=== PATIENT | female | born 1995 | race Caucasian/White ===

== ENCOUNTER → 2017-06-16 10:49 | Outpatient (CLI) | payer MEDICAID, SELFPAY ==
[2017-06-20 09:08] LABS: Testosterone, % Free 1.51 % (0.50-2.80); Testosterone, Free 1.03 ng/dL (0.10-0.85); Testosterone, Total 68 ng/dL (8-48)
[2017-06-20 10:48] LABS: DHEA Sulfate 407.9 ug/dL (110.0-431.7)
== END ==
PROVIDERS: Visit Provider Obstetrics & Gynecology
DX: E28.2 Polycystic ovarian syndrome (principal)
CPT/HCPCS: 36415; 82627; 84402; 84403; 82626

== ENCOUNTER → 2018-02-09 15:23 | Outpatient (CLI) | payer MEDICAID, SELFPAY ==
[2018-02-18 14:18] LABS: HPV Reflexed? NOT INDICATED
== END ==
PROVIDERS: Visit Provider Obstetrics & Gynecology
DX: Z12.4 Encounter for screening for malignant neoplasm of cervix (principal)
CPT/HCPCS: 88175; G0145

== ENCOUNTER 2018-10-29 17:22 | Emergency (ER) | payer MEDICAID, SELFPAY ==
[2018-10-29 17:23] VITALS: BP 149/70; PULSE 89; RESP 16; TEMP 36.7; O2SAT 100; BMI 25.2
--- NOTE | 2018-10-29 17:45 | US_ITS ---
STUDY: FIRST TRIMESTER OBSTETRICAL ULTRASOUND REASON FOR EXAM: Female, 23 years old. Cramping with positive home test. LMP: September 20, 2018 TECHNIQUE: Transabdominal and Transvaginal TECHNICAL QUALITY: Adequate. PRIOR ULTRASOUND: None. FINDINGS: There is visualization of a single gestational sac in a normal intrauterine position. The mean sac diameter (MSD) measures 1.78 cm, indicating an estimated gestational age (EGA) of 6 weeks, 5 days. The gestational sac shape is within normal limits. There is a visualized yolk sac. The yolk sac measures 0.22 cm. The placenta is non-visualized. There is visualization of a live embryo. The crown-rump length (CRL) measures 0.34 cm, indicating an estimated gestational age (EGA) of 6 weeks, 0 days. There is demonstrated cardiac activity with a heart rate of 126 bpm. The estimated gestation age (EGA) by LMP is 5 weeks, 4 days. The estimated date of delivery (YOVANI) by LMP is June 27, 2019. The estimated gestation age (EGA) by US is 6 weeks, 3 days. The estimated date of delivery (YOVANI) by US is June 21, 2019. The uterus measures 10.1 x 5.3 x 5.9 cm. There is no demonstrated uterine fibroid. The cervix is closed. The right ovary measures 2.6 x 1.4 x 2.0 cm. There is no right ovarian cyst. There is no visualized right adnexal mass or complex lesion. The left ovary measures 2.9 x 2.2 x 1.7 cm. There is no left ovarian cyst. There is no visualized left adnexal mass or complex lesion. There is no fluid in the cul de sac. US/Transvaginal w/Preg US IMPRESSION: Single intrauterine with an estimated gestational age by ultrasound of 6 weeks and 3 days and an YOVANI of June 21, 2019. Electronically Signed: Jacquelyn Cobian MD at 19:19 EDT Tel , Service support ,
--- NOTE | 2018-10-29 17:46 | ED.VISSUMM ---
- ER Visit Summary Date of Service: 10/29/18 Chief Complaint: Spotting in History of Present Illness: The patient is a 23 F presenting with spotting in . Patient states that she took a home test that was positive. She started having spotting and pelvic cramping 2 days ago. She is . She believes she may be approximately 5 weeks . She states she has history of irregular periods. Her first ATHLETIC SCOUT appointment is not until the end of this month. Denies other complaints. Physical Examination: Vitals are stable. Patient is afebrile. Alert no acute distress. HEENT exam is unremarkable. Neck is supple. Lungs are clear and equal bilaterally. Heart is regular rate and rhythm. Abdomen is soft nontender nondistended. No guarding or rebound Extremities are unremarkable. Skin is warm and dry. Remainder of exam is unremarkable. Emergency Department Course and Treatment: Blood type A positive. hCG quant [id number]. Pelvic ultrasound shows single intrauterine with an estimated gestational age by ultrasound of 6 weeks and 3 days and an YOVANI of June 21, 2019. On reevaluation, patient is resting comfortably. Advised to follow-up with her ATHLETIC SCOUT. Advised return to ED for worsening complaints. Disposition: Discharge home Impression: Threatened This note was generated with Cerelink dictation software. It may contain incorrect words, spelling, and punctuation that were not noted in review of the chart prior to signing ED Disposition - Plan for ED Patient: Instructions: ED Miscarriage Poss Referrals: Laure Arce MD [STAFF PHYSICIAN] -
[2018-10-29 20:22] LABS: hCG Titer Quant., Serum 28014 mIU/mL (1-3)
--- NOTE | 2018-10-29 20:25 | ED.DEP ---
ED Disposition - Plan for ED Patient: Instructions: ED Miscarriage Poss Referrals: Laure Arce MD [STAFF PHYSICIAN] -
[2018-10-29 20:37] VITALS: BP 132/83; PULSE 85; RESP 16; O2SAT 98
--- NOTE | 2018-10-29 20:39 | ED.RN ---
REVIEWED D/C INSTRUCTIONS, FOLLOW UP CARE, AND S/S THAT WOULD WARRANT A RETURN TO THE ED WITH PT. PT VERBALIZED AN UNDERSTANDING AND DENIES FURTHER QUESTIONS FOR THIS RN. PT SKIN P/W/D, RESP EVEN AND UNLABORED, PT A&O X 3, NO DISTRESS NOTED. PT AMBULATED OUT OF ED, GAIT STEADY.
== END 2018-10-29 20:42 | disposition home or self-care (01) ==
PROVIDERS: Emergency Provider Emergency Medicine; Family Provider Internal Medicine; PCP Internal Medicine
DX: O20.0 Threatened abortion (principal); Z3A.01 Less than 8 weeks gestation of pregnancy
CPT/HCPCS: 76817; 84702; 86900; 86901; 99284; A4216

== ENCOUNTER → 2018-11-13 10:32 | Outpatient (CLI) | payer MEDICAID, SELFPAY ==
[2018-10-29 17:23] VITALS: BMI 25.2
== END ==
PROVIDERS: Family Provider Internal Medicine; PCP Internal Medicine; Referring Provider Advanced Practice Midwife; Visit Provider Advanced Practice Midwife
DX: Z13.228 Encounter for screening for other metabolic disorders (principal); Z34.81 Encounter for supervision of other normal pregnancy, first trimester
CPT/HCPCS: 36415

== ENCOUNTER 2018-12-31 12:30 | Outpatient (RCR) | payer MEDICAID, SELFPAY ==
[2018-12-11 13:59] VITALS: BMI 25.2
== END 2019-01-16 23:59 ==
LOC: DC 12:30
PROVIDERS: Family Provider Internal Medicine; PCP Internal Medicine; Visit Provider Obstetrics & Gynecology
DX: O24.410 Gestational diabetes mellitus in pregnancy, diet controlled (principal)
CPT/HCPCS: G0108

== ENCOUNTER 2019-06-08 11:40 | Inpatient (IN) | payer MEDICAID, SELFPAY ==
[2018-12-11 13:59] VITALS: BMI 25.2
[2019-06-08] MEDS: Lactated Ringers 1,000 ML 50 ML IV (12:15)
[2019-06-08 12:19] VITALS: BMI 37.0
[2019-06-08] MEDS: Oxytocin 30 units/NS 500 ml 30 UNITS/500 ML IV.SOLN IV (12:44)
[2019-06-08 12:46] LABS: Absolute Lymphocyte Count 1.73 X10^3/uL (0.83-4.51); Absolute Neutrophil Count 6.9 X10^3/uL (2.0-7.7); Basophil# 0.01 X10^3/uL; Basophil% 0.1 % (0-1); Eosinophil# 0.03 X10^3/uL; Eosinophils% 0.3 % (0-5); Hematocrit 37.3 % (37-47); Hemoglobin 12.9 g/dL (12.0-15.0); Lymphocyte # 1.73 X10^3/ul (4.0); Lymphocyte % 18.6 % (19-41); Mean Corp Hgb Conc 34.6 g/dL (32-36); Mean Corpuscular Hgb 29.6 pg (27.0-32.0); Mean Corpuscular Volume 85.6 fL (81-99); Mean Platelet Vol. 11.1 fl (6.2-12.0); Monocyte# 0.62 X10^3/uL; Monocyte% 6.7 % (0-10); NRBC Flagged by Analyzer 0 % (0-5); Neutrophil # 6.86 X10^3/uL (2.7-7.7); Neutrophil % 73.9 % (47-70); Platelet Count 212 K/mm3 (150-450); RBC Distribution Width CV 13.1 % (11.6-14.6); RBC Distribution Width SD 40.6 fl (35.1-43.9); Red Blood Count 4.36 M/mm3 (4.2-5.4); White Blood Count 9.3 K/mm3 (4.4-11.0)
[2019-06-08] MEDS: fentaNYL-bupivacaine (epidural) 100 ML BAG EPIDURAL (13:00)
--- NOTE | 2019-06-08 13:01 | PCM.HP.OB ---
History Date of Admission: 05/12/15 Final YOVANI: 06/23/19 Gestational age: 37 Weeks and 6 Days History of this : This is a 23 year-old, 2 para 1 at 37-6/7 weeks gestation for spontaneous rupture membranes. She denies any vaginal bleeding or leaking of fluid. She is had good movement. has been complicated today by gestational diabetes, diet controlled. Allergies No Known Allergies Allergy (Verified 06/06/17 18:07) Home Medications: Home Medications Pnv No.95/Ferrous Fum/Folic AC [ Caplet] 1 each PO DAILY 10/29/18 Smoking Status: Never smoker Alcohol: None Number of Fetus(es): 1 NST - FHR Rate Baby A Baseline: normal Variability:: Moderate Accelerations:: 15 x 15 Decelerations:: None FHR Category:: Category I Uterine Activity:: Irregular contractions History Past Pregnancies: Past Pregnancies Delivery Date Name GA/ Weeks Outcome Route Wt Sex Labor Length Anesthesia Delivery Location Provider FOB Expected Infant Delivery Method: Spontaneous Vaginal Review of Systems Constitutional: Denies: Chills, Fever Eyes: Denies: Blurred vision Cardiovascular: Denies: Chest Pain Respiratory: Reports: Shortness of Breath - With exertion from . Denies: Cough Genitourinary: Denies: Dysuria Skin: Denies: Rash Neurological: Denies: Balance problems, Blurred vision Physical Exam General: Alert, Cooperative, No apparent distress Cardiovascular: Regular rate Lungs: Clear to auscultation Abdomen: Soft, Non Tender, Non-Distended, Gravid Extremities:: Deep tendon reflexes, Other - 1+ edema Neurological: Clonus. Negative for: Slurred Speech, Unsteady Gait CEILING INSULATION BLOWER: Normal external genitalia Estimated gestational size: Large for gestational age Presentation: Cephalic Cervix Dilation (cm): 3 Station: -2 Effacement (%): 70 Assessment/Plan All Active Problems Pre-employment examination (Acute) Bilirubinemia (Acute) Cholecystitis (Acute) This is a 23 year-old, avid 2 para 1 at T7 and 6/7 weeks gestation with spontaneous rupture membranes. Risk benefits and alternatives to induction with Pitocin and been discussed with patient, her questions were answered to her satisfaction she desires to proceed. May have epidural, nitrous oxide or IV meds as needed for pain control. Estimated weight is approximately 4000 g. Pelvis is clinically adequate to expect vaginal delivery. Her blood sugars in labor due to gestational diabetes class A1.
[2019-06-08] MEDS: Lactated Ringers 500 ML 999 ML IV ×2 (13:15→19:35)
[2019-06-08 13:30] LABS: Bedside Glucose 72 mg/dL (70-110)
[2019-06-08 14:20] LABS: Bedside Glucose 80 mg/dL (70-110)
[2019-06-08 16:21] LABS: Bedside Glucose 99 mg/dL (70-110)
[2019-06-08] MEDS: Lactated Ringers 1,000 ML 200 ML IV (18:21)
[2019-06-08] MEDS: DiphenhydrAMINE 50 MG/ML Syringe 25 MG IV (19:16)
[2019-06-08 19:31] LABS: Bedside Glucose 136 mg/dL (70-110)
[2019-06-08] MEDS: Oxytocin 30 units/NS 500 ml 30 UNITS/500 ML IV.SOLN 334 UNITS IV (19:56)
--- NOTE | 2019-06-08 20:14 | OP.PCM_ITS ---
Vaginal Delivery Maternal Presentation: Medically Indicated Induction Method of Induction: Pitocin Medical Reason for Induction: Premature Rupture of Membranes Amniotic Membrane Rupture Type: Spontaneous at home Amniotic Fluid Description: Clear Final YOVANI: 06/23/19 Final YOVANI Source: US <20 weeks Gestational age: 37 Weeks and 6 Days Date of Procedure: 06/08/19 Pre-Operative Diagnosis: labor Post-Operative Diagnosis: same Surgery/ Procedure Performed: Spontaneous Vaginal Delivery Type of Anesthesia: Epidural - not very effective Description of Procedure: A vigorous male infant was delivered LUIS MANUEL over intact perineum. Patient was in hands and knees as the head was and she pushed, but did not deliver the head so she was turned to the side. She then delivered the head and it restituted and the shoulder did not come easily so the patient was immediately flipped to her back and brought to the end of the bed. Her legs were placed in modified Gloria position. She then pushed again and I reached into push the anterior shoulder forward slightly. Suprapubic pressure was then administered for approximately 10 seconds and the anterior shoulder delivered the posterior shoulder then delivered easily and the remainder the delivered intact with maternal pushing efforts only. The Pitocin infusion was initiated for active management of the third stage. The cord was clamped and cut so the inf ant could be transferred to the warmer because of the shoulder dystocia. The infant was attended to by the waiting nursing staff. The placenta was delivered spontaneously and intact. The small left sided cervical laceration was repaired with 2-0 Vicryl suture in a running locked fashion and hemostasis was noted. The remainder the vagina was intact sponge and needle counts were correct. A vaginal sweep was completed by me. Presentation: LUIS MANUEL Placental Delivery Description: Spontaneous Placenta Disposition: [facility] Cord Vessel Description: 3 Vessels Cord Entanglement: None Drain: - - none Estimated Blood Loss: 300 A gender: Male (1 minute): 8 (5 minute): 9 Episiotomy Description: None Laceration: Cervical Extension/lac - 2 cm left cervical lac Medications given after delivery: IV Pitocin Complications: None
[2019-06-08] MEDS: Ketorolac 30 MG/ML Syringe IV (20:36)
[2019-06-08] MEDS: 0.9% Saline Lock 10 ML Syringe IV (20:38)
[2019-06-08 21:20] LABS: Bedside Glucose 123 mg/dL (70-110)
--- NOTE | 2019-06-08 23:15 | NURSING ---
Straight cath done prior to delivery per Dr. Arce report. Will attempt to urinate when ambulating.
[2019-06-08 23:36] VITALS: PULSE 98; RESP 18; TEMP 36.8; O2SAT 97
--- NOTE | 2019-06-08 23:36 | NURSING ---
Report given to Mary ORO.
[2019-06-08] MEDS: Acetaminophen 500 MG Tablet 1000 MG PO (23:50)
[2019-06-09 02:49] VITALS: BP 116/65; PULSE 93; RESP 18; TEMP 37
[2019-06-09] MEDS: Naproxen 250 MG Tablet 500 MG PO ×2 (02:57→12:45)
[2019-06-09] MEDS: Senna/Docusate Sodium 1 Tablet PO (02:58)
[2019-06-09 06:10] LABS: Bedside Glucose 79 mg/dL (70-110)
[2019-06-09 07:30] VITALS: BP 128/76; PULSE 89; RESP 16; TEMP 36.4
[2019-06-09] MEDS: Acetaminophen 500 MG Tablet 1000 MG PO ×2 (07:30→19:33)
--- NOTE | 2019-06-09 12:38 | PCM.PN.OB ---
Subjective: Doing well. Pain controlled. Lochia normal. Ambulating, eating and voiding without difficulty. Denies lightheadedness, dizziness, chest pain, shortness of breath, leg pain. She is bottlefeeding. - Physical Exam Vitals/I&O's: Vital Signs Temp Pulse Resp BP Pulse Ox 97.5 F L 89 16 128/76 H 97 06/09/19 07:30 06/09/19 07:30 06/09/19 07:30 06/09/19 07:30 06/08/19 23:36 Oxygen Delivery Method Room Air Weight: 199 lb Body Mass Index (BMI) 37.0 Intake and Output for Last 24 Hours 06/07/19 06/08/19 06/09/19 23:59 23:59 23:59 Intake Total 2453.17 / 2453.17 Output Total 1000 / 1000 Balance 2453.17 / 1853.17 -1000 / -1000 General: Alert, No apparent distress HEENT: Atraumatic Abdomen: Soft, Non Tender, - - FF@u-1 Extremities: No edema, No Calf Tenderness Skin: No rashes Neurological: Neuro grossly intact Psych/Mental Status: Normal Affect, Appropriate Laboratory Results 06/08/19 12:15: WBC 9.3, RBC 4.36, Hgb 12.9, Hct 37.3, MCV 85.6, MCH 29.6, MCHC 34.6, RDW Std Deviation 40.6, RDW Coeff of Ruddy 13.1, Plt Count 212, MPV 11.1, Immature Gran % (Auto) 0.400, Neut % (Auto) 73.9 H, Lymph % (Auto) 18.6 L, Carbon % (Auto) 6.7, Eos % (Auto) 0.3, Baso % (Auto) 0.1, Absolute Neuts (auto) 6.9, Absolute Lymphs (auto) 1.73, Nucleated RBC % 0 06/08/19 12:15: Blood Type A POSITIVE, Antibody Screen NEGATIVE 06/08/19 13:02: POC Glucose 72 06/08/19 14:13: POC Glucose 80 06/08/19 16:12: POC Glucose 99 06/08/19 19:25: POC Glucose 136 H 06/08/19 21:10: POC Glucose 123 H 06/09/19 06:03: POC Glucose 79 Current Medications Acetaminophen (Tylenol) 1,000 mg PO Q8H PRN PRN PRN Reason: Pain Score 1-3/10 Last Admin: 06/09/19 07:30 Dose: 1,000 mg Documented by: Bisacodyl (Dulcolax) 10 mg RECTAL UD PRN PRN Reason: If no BM Dibucaine (Dibucaine) 1 applic TOPICAL TID PRN PRN; Protocol PRN Reason: Discomfort Hydrocortisone (Hytone) 1 applic TOPICAL TID PRN PRN; Protocol PRN Reason: Discomfort Methylergonovine Maleate (Methergine) 0.2 mg IM X1 PRN PRN Reason: Excess bleeding/uterine atony Naproxen (Naprosyn) 500 mg PO Q8H PRN PRN PRN Reason: Pain Score 1-3/10 Last Admin: 06/09/19 02:57 Dose: 500 mg Documented by: Ondansetron HCl (Zofran) 4 mg IV Q4H PRN PRN PRN Reason: Nausea Prochlorperazine Edisylate (Compazine Iv) 10 mg IV Q6H PRN PRN PRN Reason: NAUSEA/VOMITING Senna/Docusate Sodium (Senokot-S, Sabrina-Colace) 1 - 2 tablet PO DAILY PRN PRN PRN Reason: Constipation Last Admin: 06/09/19 02:58 Dose: 1 tablet Documented by: Simethicone (Mylicon) 80 mg PO PCHS PRN PRN Reason: Indigestion/Stomach pain Sodium Chloride () 5 - 15 ml IV UD PRN PRN Reason: SALINE FLUSH Last Admin: 06/08/19 20:38 Dose: 10 ml Documented by: Medical Necessity - Tobacco Use Smoking Status: Never smoker Assessment/Plan All Active Problems Pre-employment examination (Acute) Bilirubinemia (Acute) Cholecystitis (Acute) PPD#1 s/p - Doing well - Bottle feeding - Dispo: Routine care
[2019-06-09 12:45] VITALS: BP 123/69; PULSE 73; RESP 16; TEMP 36.8
[2019-06-09 15:44] VITALS: BP 122/79; PULSE 82; RESP 16; TEMP 36.6
[2019-06-09 21:06] VITALS: BP 121/76; PULSE 78; RESP 14; TEMP 36.6
[2019-06-09] MEDS: Ondansetron ODT 4 MG Tablet PO (21:51)
[2019-06-10 01:48] VITALS: BP 117/79; PULSE 80; RESP 14; TEMP 36.3
[2019-06-10] MEDS: Naproxen 250 MG Tablet 500 MG PO ×2 (01:51→09:51)
[2019-06-10 08:33] VITALS: BP 120/71; PULSE 77; RESP 14; TEMP 37.2
[2019-06-10] MEDS: Senna/Docusate Sodium 1 Tablet PO (08:48)
--- NOTE | 2019-06-10 09:35 | DCINST_ITS ---
Discharge Diet: No Restrictions Discharge Activity: Return to Normal Activity, May not drive while taking narcotic pain medications., May Shower May resume sexual activity in: 4-6 weeks Additional Activity Instructions:: Nothing in the vagina for 4-6 weeks. You may return to work/school in 6 weeks. Call your doctor if your incision/area has: Continuous Slow Oozing, Sudden Increased Bleeding, Increased Pain/ Swelling, Increased Redness, Foul Smelling Discharge Additional Instructions: If you experience any of the following, contact your healthcare provider. * Bleeding that soaks a pad every hour for 2 hours * Fever 100.4 or higher * Unrelieved incision or abdominal pain * Swelling, redness, discharge or bleeding from your incision or episiotomy site * Your incision begins to separate * Problems urinating (including inability to urinate or burning while urinating). * Visual changes * Severe headache * Flu-like symptoms * Pain or redness in one of both of your breasts * Pain, warmth, tenderness or swelling in your legs, especially the calf area * Frequent nausea and vomiting * Symptoms of depression or anxiety If you experience any of the following, call 911 or go to the nearest Emergency Room. * Chest pain * Problems breathing * Seizure activity * Partial or complete paralysis of a body part, slurred speech, weakness or drooping of the face, or a sudden inability to walk or hold your balance Allergies/Adverse Reactions: Allergies No Known Allergies Allergy (Verified 06/06/17 18:07) Medications to take at Discharge Pnv No.95/Ferrous Fum/Folic AC [ Caplet] 1 each PO DAILY 10/29/18 Ibuprofen [Motrin] 800 mg PO TID PRN PRN #60 tab 06/10/19 The following prescriptions were given: Ibuprofen [Motrin] 800 mg PO TID PRN PRN #60 tab PRN Reason: Pain Transmission Status: Pending to [facility] Please Follow Up With: Laure Arce MD - [phone] When: Call to make an appointment with your doctor in 6 weeks. If you had elevated Blood Pressure or 4th degree laceration you will need to be seen in 2 weeks. Primary Care Physician: Arielle Solares MD [Primary Care Provider] - Test Results: Test results from this visit will be discussed in further detail at your follow- up appointment, if applicable.
--- NOTE | 2019-06-10 09:35 | PCM.PN.OB ---
Subjective: pain well controlled, average lochia. No C/o - Physical Exam Vitals/I&O's: Vital Signs Temp Pulse Resp BP Pulse Ox 98.9 F 77 14 120/71 97 06/10/19 08:33 06/10/19 08:33 06/10/19 08:33 06/10/19 08:33 06/08/19 23:36 Oxygen Delivery Method Room Air Weight: 90.265 kg Body Mass Index (BMI) 37.0 Intake and Output for Last 24 Hours 06/08/19 06/09/19 06/10/19 23:59 23:59 23:59 Intake Total 2453.17 / 2453.17 Output Total 1000 / 1000 Balance 2453.17 / 1853.17 -1000 / -1000 General: Alert, Cooperative, No apparent distress Current Medications Acetaminophen (Tylenol) 1,000 mg PO Q8H PRN PRN PRN Reason: Pain Score 1-3/10 Last Admin: 06/09/19 19:33 Dose: 1,000 mg Documented by: Bisacodyl (Dulcolax) 10 mg RECTAL UD PRN PRN Reason: If no BM Dibucaine (Dibucaine) 1 applic TOPICAL TID PRN PRN; Protocol PRN Reason: Discomfort Hydrocortisone (Hytone) 1 applic TOPICAL TID PRN PRN; Protocol PRN Reason: Discomfort Methylergonovine Maleate (Methergine) 0.2 mg IM X1 PRN PRN Reason: Excess bleeding/uterine atony Naproxen (Naprosyn) 500 mg PO Q8H PRN PRN PRN Reason: Pain Score 1-3/10 Last Admin: 06/10/19 01:51 Dose: 500 mg Documented by: Ondansetron HCl (Zofran) 4 mg IV Q4H PRN PRN PRN Reason: Nausea Ondansetron HCl (Zofran Odt) 4 mg PO Q8H PRN PRN PRN Reason: NAUSEA/VOMITING Last Admin: 06/09/19 21:51 Dose: 4 mg Documented by: Prochlorperazine Edisylate (Compazine Iv) 10 mg IV Q6H PRN PRN PRN Reason: NAUSEA/VOMITING Senna/Docusate Sodium (Senokot-S, Sabrina-Colace) 1 - 2 tablet PO DAILY PRN PRN PRN Reason: Constipation Last Admin: 06/10/19 08:48 Dose: 2 tablet Documented by: Simethicone (Mylicon) 80 mg PO PCHS PRN PRN Reason: Indigestion/Stomach pain Last Admin: 06/10/19 08:48 Dose: 80 mg Documented by: Sodium Chloride () 5 - 15 ml IV UD PRN PRN Reason: SALINE FLUSH Last Admin: 06/08/19 20:38 Dose: 10 ml Documented by: Medical Necessity - Tobacco Use Smoking Status: Never smoker Assessment/Plan All Active Problems Pre-employment examination (Acute) Bilirubinemia (Acute) Cholecystitis (Acute) PPD#2 doing ewll ready for d/c in [facility] for low blood sugars
--- NOTE | 2019-06-10 13:15 | CASEMGMT ---
Social Work Labor and Delivery Unit Patient Addresss: [facility] [address], [address], [place] [address] Patient phone: [phone] Date of Referral:?06.10.2019 Time of Referral:?033 Date of Intervention:?06.10.2019 Time of Intervention:?1315 ? Referred by:?Dr. Jacky Arce ? Reason for Referral:?Infant admitted to [facility]; father of baby (FOB) not involved.? History obtained from:?Mother of baby (MOB) Pascale Clemons and medical records. ?This card writer hand is familiar with family from [facility] labor and delivery unit, where this card writer hand is also the assigned social welfare clerk. ?[place] [facility] [place] writer hand also provides social work to the [facility] ? Household composition:??MOB and older child have been living together. ?Felipeaaaneudy will live in this home at discharge. Reports home situation is safe and adequate. ? Patient's parent/guardian status:?MOB is age 23, single female. ??The FOB is reported to be an male named Kvng, who is 28. ??MOB reports was a result of a one time encounter. ??MOB reports uncertainty as to the level of involvement that reported FOB will have. ?Plan is to pursue paternity as this is what FOB does want. ?No other children reported for FOB. ?ANA now has two children with different paternity. ??Minor Children: Ranjeet Clemons (born 12.13.2012) and Lexus Clemons (born 06.[birth year].2019). ? Medical History:?ANA is G2, P1 to 2 after delivering Ayer. ? care good, stating at 8 weeks. ?ANA had gestational diabetes. ?Reports her epidural did not work properly at delivery, so ended up having a natural . ?MOB also report shoulder dystocia during delivery with Lexus. ??Lexus, who was born at 37 weeks, weighed 8 pounds 6 ounces. ??Apgars 8 and 9 at 1 and 5 minutes of life. ?Lexus was transferred into the [facility] for care and treatment related to hypglycemia. ? Developmental Concerns:?No identified developmental concerns reported for MOB or baby Lexus. ?PNC record indicates a family history of ANA's first cousin with developmental disability. ?ANA's brother identified as a slow learned as a result of umbilical cord issues at the time of . ? ? Educational Status:?High school for MOB, but no diploma. ?MOB is able to read, write, and understands what is read. ? ? Health Care Coverage:?[employer] ? 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 ?MOB will return to work after maternity leave. ? ? Childcare/Caregiver(s):?MOB and then help from ANA's own mother who will babysit.? ? Transportation:?No issues reported or identified. ? Programs/Agencies Involved:?MOB is active with [facility] for food and medical. ?Active with WIC. ??Declines [facility] or [employer] referrals. ?Denies any history of legal issue or with children services. ? ? Behavioral Health Issues:?MOB report as a teen she had depression and was in counseling and on medicine. ?MOB has been off of all since the age of 16 and denies any reoccurrence as an adult. ???Denies any depression. ?Denies any history of suicidal ideation, intent or attempts. ?Denies any thoughts of harm to others. ??Reports did have some anxiety surfacing during , just about the baby being okay. ??Denies any history of substance use or abuse, including alcohol/tobacco/marijuana/heroin/cocaine/meth/pills. ???Maternal tox screen on 11.13.18 was negative. ? Family Stressors:?? unplanned but accepted and MOB states to be happy to have Amaar. ???FOB involvement is unknown at this time and plans for paternity testing. ? ? Support Systems:?MOB reports to have good support from her mother and stepmother, and that can talk to both about stressors. ?MOB reports employment is also a good place to be and feels supported there. ?Baby admitted to the [facility]. ? Assessment Met with MOB at baby Amaar's bedside in the [facility]. ?Educated to dual role between hospitals and that meeting with MOB for both. ??MOB pleasant, engaging in conversation, and pleasant. ?MOB held appropriate eye contact, mood and affect appropriate. ?MOB held baby during social work visit, was attentive and gentle, appropriate and showing bonging cues. ??MOB reports to have all needed baby supplies, and to have help when goes home. ?MOB reports to feel a connection to baby as well. ??MOB accepting of resources lists for [facility] and packet of information on depression and anxiety. ?MOB listened to education on risk factor and importance of seeking out support. ?MOB able to give appropriate responses to shaken baby prevention and safety sleeping. MOB reports to know how to go about seeking out paternity and child support. ? Plan MOB discharging as a patient today. No other service [facility] perspective. Amaar to discharge home from the SCN to MOB when ready. ?Resources have been provided to MOB. ?? ? Social work remains available for support as needed while the family is on the SCN. ? ? MARILY Dee ?
== END 2019-06-10 12:00 | disposition home or self-care (01) | DRG 542 ==
PROVIDERS: Admitting Provider Obstetrics & Gynecology; PCP Internal Medicine; Visit Provider Obstetrics & Gynecology
DX: O24.420 Gestational diabetes mellitus in childbirth, diet controlled (principal); O66.0 Obstructed labor due to shoulder dystocia; O71.3 Obstetric laceration of cervix; O42.913 Preterm premature rupture of membranes, unspecified as to length of time between rupture and onset of labor, third trimester; O36.63X0 Maternal care for excessive fetal growth, third trimester, not applicable or unspecified; Z3A.37 37 weeks gestation of pregnancy; Z37.0 Single live birth
CPT/HCPCS: 59050; 82962; 85025; 86850; 86900; 86901; 99218; J7120; A4216; G0378

== ENCOUNTER 2019-07-13 11:20 | Day surgery (SDC) | payer MEDICAID, SELFPAY ==
[2019-07-13 11:21] VITALS: BP 155/82; PULSE 87; RESP 16; TEMP 36.6; O2SAT 99; BMI 31.6
--- NOTE | 2019-07-13 12:03 | CT_ITS ---
STUDY: CT ABDOMEN AND PELVIS WITHOUT CONTRAST REASON FOR EXAM: Female, 24 years old. RIGHT SIDED AB PAIN X 3 DAYS RADIATION DOSAGE (If Supplied By Facility): CTDIvol = ( 9.32 ) mGy, DLP = ( 449.21 ) mGycm COMPARISON: Previous CT scan of the abdomen and pelvis obtained on 03/28/2016 TECHNIQUE: A CT scan of the abdomen and pelvis was performed without IV contrast contrast administration. Coronal and sagittal reconstruction images were reviewed. This exam was performed according to our departmental dose-optimization program, which includes automated exposure control, adjustment of the mA and/or kV according to patient size and/or use of iterative reconstruction technique. FINDINGS: The lung bases and the base of the heart are normal. The liver is normal.The spleen is normal.The adrenal glands are normal.The head, body, and tail of the pancreas are normal. The right and left kidneys were examined and appear to be normal. Both ureters appear to be normal, and no obstructive uropathy is identified. The abdominal aortal is normal along its course and distribution. No paraortic lymphadenopathy is seen. No abdominal masses or lesions are seen. The CT scan of the pelvis was then reviewed. The common iliac vessels, external iliac vessels, and common femoral vessels are normal along their course and distribution uterus appears to be enlarged and is anteflexed with small uterine leiomyoma involving the frontal of the uterus.. The appendix is visualized and contains a small amount of gas with a thickened superior wall. The appendix measures 9 mm in thickness which is above normal limits. These findings are suspicious for appendicitis. No pericecal inflammatory reaction is seen. Bone scanning windows of the lumbar spine and pelvis were reviewed in the coronal and sagittal planes and appear to be normal. CT/Abdomen/Pelvis without Cont IMPRESSION: Mild thickening of the appendix is identified which now measures 9 mm in thickness. These findings are suspicious for appendicitis and a chronic indolent appendicitis could give this appearance. Electronically Signed: Delta Scott, at 14:33 EST Tel , Service support ,
--- NOTE | 2019-07-13 12:04 | ED.VIS.GEN ---
History of Present Illness Chief Complaint: Abd Pain Informant: Patient Onset: Days Maximum Severity: Mild Narrative: Complains of right side abdominal pain for the last 2 or 3 days, that is been persistent, nothing makes it better or worse nothing obviously triggered it, she has history of cholecystectomy years ago, she is 5 weeks spontaneous vaginal delivery without complications, normal bowel and urinary habits, she is able to eat no change with food, the persistence of the pain caused her to come to the hospital no nausea vomiting or fever again no urinary or bowel bladder history her lochia from the vaginal delivery is markedly reduced Past Medical History - Allergies and Home Meds Allergies/Adverse Reactions: Allergies No Known Allergies Allergy (Verified 06/06/17 18:07) Primary Care Physician: Arielle Solares MD [Primary Care Provider] - Past Medical History: - Surgical History: no surgical history, cholecystectomy - As above Smoking Status: Never smoker - Family History Maternal Family History: Reports: No pertinent history Review of Systems General: Denies: Chills, Fever, Sweats Eyes: Denies: Visual changes - bilaterally, Diplopia ENT: Denies: Rhinorrhea, Sore throat Cardiovascular: Denies: Chest pain, Palpitations Respiratory: Denies: Dyspnea, Cough, Dyspnea on exertion Gastrointestinal: Reports: Abdominal pain. Denies: Nausea, Vomiting, Diarrhea, Melena, Hematochezia Genitourinary: Denies: Dysuria, Hematuria, Frequency Musculoskeletal: Denies: Back pain, Extremity Pain Skin: Denies: Rash, Wounds Neurological: Denies: Headache, Weakness, Numbness Physical Exam Vital Signs/Narrative: Vital Signs Temp Pulse Resp BP Pulse Ox 07/13/19 11:21 97.9 F 87 16 155/82 H 99 General: Well nourished, Well developed, No Acute Distress Head: Normocephalic, Atraumatic Eyes: Perrl, EOMI ENT: Moist mucous membranes, No rhinorrhea Neck: Supple, Nontender Cardiovascular: Regular rate, Regular rhythm, No murmurs Respiratory: No distress, CTA bilaterally, Chest nontender Abdomen: Soft, Nondistended, Normal bowel sounds, - - Nonspecific discomfort to the right upper abdomen there is no rebound guarding organomegaly is no back pain there is no pain to palpation of the lower abdominal area Back: Nontender, Normal Inspection Extremities: Nontender, No edema Skin: Normal color, No rash Neurological: Alert, Oriented x3, Cranial nerves II-XII grossly intact, Normal Strength, Normal Sensation Psychological: Normal affect, Normal Mood Diagnostic/Tx/Re-eval - Medical Decision Making The differential is rather extensive her vital signs are unremarkable her exam shows nonspecific discomfort history of cholecystectomy recent vaginal delivery given all the above screening labs IV fluids UA CT The patient's ED screening labs are generally unremarkable, the abdominal CT per radiology shows an appendix that appears to be 9 mm suggestive of early appendicitis, given all the above we spoke with Dr. Gee covering [facility] surgery, he indicated that Dr. Nails would be coming by to see the patient for the management options, explained all the above to the patient she understands Disposition pending surgery evaluation Impression final right side abdominal pain possible early appendicitis, 5-week status post spontaneous vaginal delivery ED Disposition - Plan for ED Patient: Diagnosis: Abdominal pain Instructions: ABDOMINAL PAIN, Possible Appendicitis (Female) Referrals: Arielle Solares MD [Primary Care Provider] -
[2019-07-13] MEDS: 0.9% Normal Saline 1,000 ML 1000 ML IV (12:28)
[2019-07-13] MEDS: morphine 8 MG/ML Syringe IV (12:31)
[2019-07-13] MEDS: Ondansetron 4 MG/2 ML Vial IV (12:31)
[2019-07-13 12:33] LABS: Absolute Neutrophil Count 6.6 X10^3/uL (2.0-7.7); Basophil# 0.02 X10^3/uL; Basophil% 0.2 % (0-1); Eosinophils% 1.1 % (0-5); Hematocrit 41.4 % (37-47); Hemoglobin 13.7 g/dL (12.0-15.0); Lymphocyte % 21.6 % (19-41); Mean Corp Hgb Conc 33.1 g/dL (32-36); Mean Corpuscular Hgb 28.7 pg (27.0-32.0); Mean Corpuscular Volume 86.6 fL (81-99); Mean Platelet Vol. 9.7 fl (6.2-12.0); Monocyte# 0.58 X10^3/uL; Monocyte% 6.3 % (0-10); NRBC Flagged by Analyzer 0 % (0-5); Neutrophil # 6.55 X10^3/uL (2.7-7.7); Neutrophil % 70.5 % (47-70); Platelet Count 288 K/mm3 (150-450); RBC Distribution Width CV 12.2 % (11.6-14.6); RBC Distribution Width SD 38.7 fl (35.1-43.9); Red Blood Count 4.78 M/mm3 (4.2-5.4); White Blood Count 9.3 K/mm3 (4.4-11.0)
[2019-07-13 12:34] LABS: Color, Urine Yellow (Yellow); Glucose, Dipstick Normal (Normal); Ketone-Dipstick Negative (Negative); Leukocyte Esterase-Dipstick 100 /ul (Negative); Nitrite-Dipstick Negative (Negative); Occult Blood-Urine Negative /ul (Negative); Protein-Dipstick 15 mg/dl (Negative); Specific Gravity, Urine 1.015 (1.002-1.030); Urine Bilirubin Dipstick Negative (Negative); Urine Clarity Sl. Cloudy (Clear); Urine Urobilinogen 1 mg/dl (Normal); Urine pH 6.5 (5.0 - 8.0)
[2019-07-13 12:44] LABS: Bacteria 2+ /hpf (None Seen); Mucous, Urine RARE /hpf (<or=2+); Red Blood Cells-Urine 0-5 SEEN /hpf (0-5); Squamous Epithelial Cells - UA 5-10 SEEN /hpf (5-10); White Blood Cells 5-10 SEEN /hpf (0-5)
[2019-07-13 12:48] LABS: ALB/GLOB Ratio 0.9 RATIO (0.9-2.4); AST(SGOT) 12 U/L (15-37); Alanine Aminotransfer ALT/SGPT 25 U/L (13-56); Albumin, Serum 3.7 g/dL (3.2-5.0); Alkaline Phosphatase 125 U/L (45-117); Anion Gap 6 (5-15); BUN 13 mg/dL (7-18); BUN/Creat Ratio 17.9 RATIO (10-20); Calcium,Total 9.1 mg/dL (8.5-10.1); Chloride 108 mmol/L (98-107); Creatinine, Serum 0.72 mg/dL (0.55-1.02); EST Glomerular Filtration Rate 104 mL/min (>60); Est Glom Filt Rate - Afr Amer 126 mL/min (>60); Estimated Creatinine Clearance 98.81 ml/min; Globulin 4.1 g/dL (2.2-4.2); Glucose 80 mg/dL (74-106); Lipase 75 U/L (73-393); Potassium 3.5 mmol/L (3.5-5.1); Protein, Total 7.8 g/dL (6.4-8.2); Sodium Level 140 mmol/L (136-145)
[2019-07-13 12:55] LABS: Internal QC Validated? YES +Cl - CLEAR BKGD; Pregnancy, Serum, hCG Quali. NEGATIVE Negative
--- NOTE | 2019-07-13 15:35 | APP_PTH ---
PATIENT: LEV CLAYTON LOC: [facility] [place] U#:[id number] AGE/SX: 24/F ROOM: RE07/13/[address]: Dr. Sharon Nails MD : 1995 BED: DIS: 07/13/2019 SPEC #: [id number] RECD: 07/14/19 12:02 STATUS: ARIANA REIsabelle #: [id number] DANIELA: 07/13/19 15:[address]: Sharon Nails DEPT: SURGICAL PATHOLOGY RECD BY: Huang Garcia ENTERED: 07/14/19 12:11 SP TYPE: APPENDIX OTHR DR: Dr. Arielle Solares MD Tissues: Appendix, NOS Procedures: Surgery Specimen Level III HEADER OPERATION: Laparoscopic appendectomy PRE-OP DIAGNOSIS: Acute appendicitis TISSUE SUBMITTED: Appendix MICROSCOPIC DIAGNOSIS Appendix, appendectomy: Appendix, negative for acute inflammation. See comment. ZHANE:andrew 07/15/19 COMMENT The entire appendix is examined. No evidence of acute inflammation in the lumen or appendicular wall. The appendicular lumen shows focal fibrous luminal obliteration. MICROSCOPIC DESCRIPTION Slides are reviewed. GROSS DESCRIPTION Received is one container labeled with the patient's name and designated appendix. The specimen consists of a C-shaped appendix measuring 5.5 cm in length and up to 0.6 cm in diameter. The attached periappendiceal adipose tissue measures up to 0.7 cm in width. No obvious perforation is identified. The lumen is pinpoint. No fecalith is identified. The entire appendix is submitted in one cassette. / SJ:rg 07/14/19 TC:4 CPT: 27868
--- NOTE | 2019-07-13 15:47 | NURSING ---
DR LEW IN ER
--- NOTE | 2019-07-13 16:14 | PCM.HP.BLA ---
History and Physical Date of Admission: 07/13/19 Chief Complaint: abdominal pain History of Present Illness: 24 y/o otherwise healthy WF presents with right lower quadrant abdominal pain for the past three days. Denies nausea or emesis. Denies constipation or diarrhea. She is recently . Denies fevers Normal WBC, slight left shift of differential also possible UTI - positive LE, 2+ bacti CT scan - The appendix is visualized and contains a small amount of gas with a thickened superior wall. The appendix measures 9 mm in thickness which is above normal limits. These findings are suspicious for appendicitis. Past Medical History: denies major medical illnesses Past Surgical History: cholecystectomy Medications: denies taking chronic medications Allergies: Has no known drug allergies Social history: TOB use denies Review of Systems: General - denies fevers, denies weight loss, denies anorexia Cardiovascular denies chest pain, denies history of heart attack Pulmonary denies shortness of breath, denies coughing up blood, denies TOB use Gastrointestinal as per HPI, denies blood in stools, denies hematemesis Neurological denies seizures, denies history of stroke Genitourinary denies burning with urination, denies blood in urine Hematological denies spontaneous/prolonged bleeding Skin denies open non healing wounds Musculoskeletal denies history of fractures Endocrine denies diabetes Psychological denies hallucinations Physical examination: Vital signs Temp 97.9F HR 87 Bp 155/82 RR 16 General WD/WN WF in no apparent distress, alert and oriented, not septic appearing HEENT Normocephalic. EOM intact with sclera clear and no icterus noted. Wearing glasses. Neck is supple with no jugular venous distention noted. Trachea is midline. Lungs clear to auscultation. normal breath sounds in all lung reed. No rales/rhonchi/wheezing noted. No labored breathing noted, such as retractions. No cough heard. Heart normal S1 and S2 auscultated. No rubs/clicks/murmurs noted. regular Abdomen soft but tender in right lower quadrant. Normal bowel sounds, difficult to determine if any masses or organomegaly due to body habitus by PE Extremities no calf tenderness noted. No pitting edema noted. Genitourinary/Rectal deferred Skin normal skin integrity. Neurological non focal. Psychological normal affect, patient is calm and appropriate Impression: right lower quadrant abdominal pain abnormal CT scan findings of appendix UTI Discussion/Plan: I have discussed the above with the patient. She is here with her mother I have offered the patient the procedure of laparoscopic appendectomy I have explained the procedure to the patient. I have counseled the patient as to the risks of the procedure, including but not limited to: infection, bleeding, injury to any blood vessels/nerves, scar tissue, injury to any intrabdominal organs, injury to kidney/ureters, injury to bowel/bladder, intraabdominal abscess/bleeding, hernias at incisional sites, wound infections, possible open procedure, complications of anesthesia, postoperative pneumonia/cardiac problems/blood clots etc. the patient understands. She wishes to proceed. I have answered all questions to the patient?s satisfaction and the patient has no further questions.
[2019-07-13] MEDS: Morphine 4 MG/ML Syringe IV (16:15)
[2019-07-13 16:18] VITALS: BP 133/95; PULSE 99; RESP 16; TEMP 36.7; O2SAT 100; BMI 31.6
--- NOTE | 2019-07-13 16:29 | ED.RN ---
surgery called for report. due to being ready for pt she did not want skin prep done states she will perform in OR. handoff to OR staff who wheeled pt to PACU and informed we did not have antibiotic ordered or SCD in ER. they were ok with this and will perform needed tasks in pre-op
--- NOTE | 2019-07-13 17:04 | NURSING ---
SURGERY DR LOUANN SAUL
--- NOTE | 2019-07-13 17:40 | DCINST_ITS ---
Discharge Diet: No Restrictions - avoid carbonated beverages for a couple of days as this will make you bloated and this would be uncomfortable after surgery drink plenty of fluids Discharge Activity: Return to Normal Activity, May not drive while taking narcotic pain medications. Lifting Restrictions: no lifting greater than 20 pounds for two weeks Call your doctor if your incision/area has: Continuous Slow Oozing, Foul Smelling Discharge Call your doctor if you observe: Fever of 101 or Higher Additional Dressing/Incision Instructions:: Leave dressings in place. May get wet in shower. Do not soak - no tub baths/swimming Instructions: ABDOMINAL PAIN, Possible Appendicitis (Female) Additional Instructions: Recommend pain medication regimen: take 650 mg acetaminophen (Tylenol) then in 3-4 hours take 600 mg ibuprofen (Motrin, Advil) then in 3-4 hours take 650 mg acetaminophen, then in 3-4 hours take 600 mg ibuprofen, etc - for 2-3 days Take prescription narcotic pain medication for severe pain and at night Medications to take at Discharge NK 07/13/19 Allergies/Adverse Reactions: Allergies No Known Allergies Allergy (Verified 06/06/17 18:07) Primary Care Physician: Arielle Solares MD [Primary Care Provider] - Test Results: Test results from this visit will be discussed in further detail at your follow- up appointment, if applicable. Please Follow Up With: Sharon Nails MD - call When: to be seen in 7-10 days, please call for appointment, thank you
[2019-07-13] MEDS: Bupiv/Epi 0.25% 30 ML Vial (18:09)
--- NOTE | 2019-07-13 18:17 | OP.PCM_ITS ---
Report of Operation Date of Procedure: 07/13/19 Pre-Operative Diagnosis: abnormal appendix by CT scan, right lower quadrant abdominal pain Post-Operative Diagnosis: same Surgery/Procedure Performed:: laparoscopic appendectomy Description of Surgical Findings:: grossly normal appendix Type of Anesthesia:: General Anesthesiologist: Mally Urbina Specimen's removed: appendix Drains: none Estimated Blood Loss (mL): < 10 ml Fluids Replaced: 800 ml RL Description of Procedure: After informed consent was obtained, the patient was brought into the operating room. Appropriate time out protocol was followed. She was then placed in the supine position on the operating table. Flowtron stockings were placed on the patient. The patient was then placed under general anesthesia. The patient?s abdomen was then prepped with a sterile surgical skin preparation and sterile s urgical drapes were placed. The infraumbilical skin fold was grasped with penetrating clamps and the skin and subcutaneous tissues were infiltrated with 0.25% marcaine with epinephrine. A skin incision was then made. A Veress needle was then inserted into the intraabdominal cavity and checked to be in the proper position with a normal saline drop test. A CO2 pneumoperitoneum was then created. Once this was achieved, the Veress needle was removed and a 5 mm trocar was placed in its stead. A 5 mm laparoscope was then inserted into the trocar. Careful examination of the intraabdominal contents was then done. There was no evidence of injury to any internal organs from placement of the Veress needle or the trocar. Under direct visualization, a 12mm suprapubic trocar and a 5mm left lower quadrant trocar was then placed into the intraabdominal cavity. The skin and subcutaneous tissues at these sites were first infiltrated with 0.25% marcaine with epinephrine. Attention was then dire cted to the right lower quadrant. The appendix was visualized. The mesentery of the appendix was taken down by cauterizing the tissue from the free edge to the base of the appendix with the Harmonic scalpel. Once the base of the appendix was freed of surrounding tissues, then the linear gastrointestinal stapling device was brought into the abdominal cavity via the 12mm port and placed across the base of the appendix. The stapling device was fired, thus stapling across the base of the appendix and transecting it simultaneously. The appendix was then placed in an Endobag and this was brought out through the suprapubic trocar. The appendix was then forwarded to Pathology for analysis. The appendiceal stump was carefully examined. There was no evidence of any active bleeding or fecal leakage. The surrounding tissues were also examined and there was no evidence of any active bleeding or fecal/bile leakage. The intraabdominal cavity was examined and there was no evidence of further inflammation or tissue abnormality. There was no evidence of any peritoneal fluid. The CO2 pneumoperitoneum was released and all trocars were removed intact. The suprapubic fascia was reapproximated with a figure-of-8 vicryl suture. All skin incisions were reapproximated with monocryl suture. Cavilon and steristrips were applied to reinforce skin closure and proper sterile dressings were placed. The patient was then extubated and brought to the Recovery Room in stable condition. - Complications none noted - Admit VTE Documentation VTE Present on Admission: Yes VTE Mechan Device Prophylaxis: SCD's
[2019-07-13 18:30] VITALS: BP 133/95; BP 149/81; PULSE 106; PULSE 114; RESP 16; RESP 18; TEMP 36.5; O2SAT 98; O2SAT 99
[2019-07-13] MEDS: Lactated Ringers 1,000 ML 75 ML IV (18:42)
[2019-07-13 18:45] VITALS: BP 133/95; BP 147/87; PULSE 104; RESP 16; O2SAT 97
[2019-07-13 18:54] VITALS: BP 133/95; BP 147/68; PULSE 107; RESP 16; TEMP 36.2; O2SAT 96
[2019-07-13] MEDS: HYDROcodone Bitartrate/Apap 5/325 Tablet PO (19:14)
[2019-07-13 19:18] VITALS: BP 133/95; BP 141/85; RESP 16; TEMP 36.4; O2SAT 98
== END 2019-07-13 19:29 | disposition home or self-care (01) ==
LOC: ED 15:59 → SDC 16:04 → ACINP 16:05
PROVIDERS: Emergency Provider Emergency Medicine; PCP Internal Medicine; Visit Provider Surgery
PROC: 0DTJ4ZZ Resection of Appendix, Percutaneous Endoscopic Approach (ICD-10-PCS; CPT 44970; principal; 2019-07-13 15:15)
DX: R10.31 Right lower quadrant pain (principal); Z90.49 Acquired absence of other specified parts of digestive tract; N39.0 Urinary tract infection, site not specified
CPT/HCPCS: 00840; 44970; 74176; 80053; 81001; 83690; 84703; 85025; 88304; 99282; J7030; J7050; J7120; Q9967; A4216; J2405

== ENCOUNTER 2019-07-22 07:58 | Day surgery (SDC) | payer MEDICAID, SELFPAY ==
--- NOTE | 2019-07-21 09:05 | PCM.HP.BLA ---
History and Physical Date of Admission: 07/22/19 HPI: The patient is a 24 year old female presenting for pre-operative visit. She is scheduled for?bilateral salpintectomy, for?sterilization on?07/23/2019. ??Procedure discussed along with risks, benefits and complications. ?Other alternatives discussed for management. Consent form signed??Yes.? PAST MEDICAL HISTORY PAST MEDICAL HISTORY Diagnosis Date ? Acute appendicitis 07/13/2019 ? Chlamydia 03/2012 ? Depression ? ? FRACTURE 1999 ? RIGHT ARM, TRAMPOLINE ACCIDENT ? Gestational diabetes mellitus, class A1 12/09/2018 ? ? PAST SURGICAL HISTORY PAST SURGICAL HISTORY Procedure Laterality Date ? LAP CHOLECYSTECT/CHOLANGIOGRAPHY ? 05/13/15 ? CBD stones ? LAPAROSCOPY, SURGICAL, APPENDECTOMY ? 07/13/2019 ? ? CURRENT MEDICATIONS Current Outpatient Medications Medication Sig Dispense Refill ? blood sugar diagnostic test strip 1 Strip four times daily. Use as instructed 120 Strip 9 ? Lancets lancets 1 Each four times daily. Use as instructed 120 Each 9 ? Urine Glucose-Ketones Test (KETO-DIASTIX) strp 1 Strip four times daily. 120 Strip 9 ? vit [id number] (PRENATE MINI, FERR ASP GLYCIN,) 18-1-350 mg cap Take 1 capsule by mouth once daily. 30 capsule 11 ? No current facility-administered medications for this visit.? ? ALLERGIES:?Patient has no known allergies. ? PERSONAL HISTORY:? SOCIAL HISTORY Social History ? Tobacco Use ? Smoking status: Never Smoker ? Smokeless tobacco: Never Used Substance Use Topics ? Alcohol use: No ? Drug use: No ? FAMILY HISTORY:? FAMILY HISTORY FAMILY HISTORY Problem Relation Age of Onset ? Diabetes Mother ? ? Stroke Mother ? ? Diabetes Father ? ? Diabetes Brother ? ? Cancer Maternal Grandmother ? ? Hypertension Maternal Grandfather ? ? Cancer Paternal Grandmother ?lung ? Cancer Paternal Grandfather ?prostate ? No Known Problems Daughter ? ? REVIEW OF SYMPTOMS: GENERAL: denies fevers or chills ENDOCRINOLOGY: has not been on steroids Cardiology : denies palpitations or chest pain Respiratory: denies SOB or cough Hematology: denies history of prolonged bleeding or easy bruising or VTE Allergy: Denies history of personal or family history of allergy to anesthesia ? ? PHYSICAL EXAMINATION: ? VITALS:?unknown if currently . ? GENERAL:??The patient is well nourished, well hydrated in no acute distress. ?, The patient is oriented to time, place, and person. NECK:?Supple. No lynphadenopathy, normal thyroid, no thyromegaly. LUNGS:?Clear to auscultation bilaterally. no wheezes, rhonchi or rales HEART:?Regular rate and rhythm, Normal heart sounds and No murmurs or gallops ? IMPRESSION:?sterilization request ? PLAN:???The risks/benefits/alternatives and personal involved for the planned?l/s bilateral salpingectomy?were reviewed with the patient. Her questions were answered to her satisfaction and she desires to proceed. ?Consent was signed. ?I reviewed with her postop instructions and expectations. ? ? I have reviewed and updated past medical and surgical history, medications and allergies? This history and physical was completed in my office on 07/20/2019.
[2019-07-22] VITALS (10 sets, daily range): BP systolic 117–142; BP diastolic 66–84; PULSE 68–95; RESP 15–16; TEMP 36.1–36.7; O2SAT 16–100; BMI 34.4
[2019-07-22 08:31] LABS: Internal QC Validated? YES +Cl - CLEAR BKGD; Pregnancy, Urine Negative Negative
[2019-07-22] MEDS: Acetaminophen 500 MG Tablet 1000 MG PO (08:31)
[2019-07-22] MEDS: Celecoxib 200 MG Capsule 400 MG PO (08:32)
[2019-07-22] MEDS: Lactated Ringers 1,000 ML 100 ML IV (08:39)
--- NOTE | 2019-07-22 09:30 | FALS_PTH ---
PATIENT: LEV CLAYTON LOC: [facility] [place] U#:[id number] AGE/SX: 24/F ROOM: RE07/22/[address]: Dr. Laure Arce MD : 1995 BED: DIS: 07/22/2019 SPEC #: [id number] RECD: 07/22/19 13:14 STATUS: ARIANA ESPEARNZA #: [id number] DANIELA: 07/22/19 09:[address]: Laure Arce DEPT: SURGICAL PATHOLOGY RECD BY: Huang Garcia ENTERED: 07/22/19 13:51 SP TYPE: FALL TUBES OTHR DR: Dr. Arielle Solares MD Tissues: Fallopian tube Procedures: Surgery Specimen Level II HEADER OPERATION: Laparoscopic salpingectomy PRE-OP DIAGNOSIS: Sterilization TISSUE SUBMITTED: Bilateral fallopian tubes MICROSCOPIC DIAGNOSIS Bilateral fallopian tubes, salpingectomy: Bilateral fallopian tubes including fimbrial ends, no pathologic diagnosis. A paratubal cyst. SJ:andrew 07/23/19 MICROSCOPIC DESCRIPTION Slides are reviewed. GROSS DESCRIPTION Received is one container labeled with the patient's name and designated bilateral fallopian tubes. The specimen consists of bilateral fallopian tubes including fimbrial ends measuring 6 cm in length and 0.5 cm in diameter and 7 cm in length and 0.5 cm in diameter. A paratubal cyst is noted in one of the fallopian tubes measuring 1 cm in greatest dimension. The fallopian tubes are not identified as right or left. Sections reveal unremarkable cut surfaces. Solder Making Laborer sections are submitted in two cassettes with each cassette containing one fallopian tube. Cassette 2 also contains the paratubal cyst. / ZHANE:andrew 07/22/19 TC:5 CPT: 05698 x2
[2019-07-22] MEDS: Lactated Ringers 1,000 ML 75 ML IV (10:10)
--- NOTE | 2019-07-22 10:10 | DCINST_ITS ---
Discharge Diet: No Restrictions - Increase fluid intake for the next 48 hours. Discharge Activity: Return to Normal Activity, May Drive - when you are no longer taking pain/narcotic meds., May Shower, May Take a Tub Bath - in 7 days Additional Activity Instructions:: Ambulate often the next week after surgery. Nothing in the vagina for 5 days. Call your doctor if your incision/area has: Continuous Slow Oozing, Sudden Increased Bleeding, Increased Pain/ Swelling, Increased Redness, Foul Smelling Discharge Call your doctor if you observe: Fever of 101 or Higher Cleanse incision/area with: Soap & Water, - - Your incisions have skin glue, it can get wet. Wash with soap and water and leave on for 10-14 days Allergies/Adverse Reactions: Allergies No Known Allergies Allergy (Verified 07/22/19 08:18) Medications to take at Discharge Acetaminophen [Tylenol] 500 - 1,000 mg PO Q6H PRN PRN 07/20/19 Ibuprofen [Motrin] 600 mg PO Q6H PRN #60 tab 07/22/19 Oxycodone [Oxyir] 5 mg PO Q6H PRN PRN 7 Days #10 tablet 07/22/19 The following prescriptions were given: Ibuprofen [Motrin] 600 mg PO Q6H PRN #60 tab PRN Reason: Pain Transmission Status: Pending to [facility] Oxycodone [Oxyir] 5 mg PO Q6H PRN PRN 7 Days #10 tablet PRN Reason: severe pain Transmission Status: Received by [facility] Primary Care Physician: Arielle Solares MD [Primary Care Provider] - Test Results: Test results from this visit will be discussed in further detail at your follow- up appointment, if applicable. Please Follow Up With: Laure Arce MD - [phone] When: 2-4 weeks or as needed
[2019-07-22] MEDS: Bupivacaine Mpf 0.5% 30 ML VIAL (10:30)
--- NOTE | 2019-07-22 10:46 | OP.PCM_ITS ---
Report of Operation Date of Procedure: 07/22/19 Pre-Operative Diagnosis: sterilization request Post-Operative Diagnosis: none Surgery/Procedure Performed:: Laparoscopic bilateral salpingectomy channel marketing specialist: Seth Aguillon Type of Anesthesia:: General Anesthesiologist: Vlad Man Special Medications: none Specimen's removed: bilateral fallopian tubes Drains: none Estimated Blood Loss (mL): 10 Fluids Replaced: 1100 cc Description of Procedure: The patient was taken to the operating room where she was prepped and draped in the dorsolithotomy position. A weighted speculum was placed in the vagina and the anterior lip of the cervix was grasped with a tenaculum. The Emma uterine manipulator was placed and the remainder of the instruments were removed from the vagina. Attention was turned to the abdomen. All port sites were infiltrated with 0.5% Marcaine before skin incisions were made. A 5 mm [intraumbilical] incision was made. The anterior abdominal wall was tented up with 2 towel clamps while a 5 mm blade less trocar and sleeve were [directly inserted]. Intraperitoneal placement was confirmed with the laparoscope. The pneumoperitoneum was created and the underlying abdominal contents were intact. The patient was placed in Trendelenburg. Right and left lower quadrant ports were placed under direct visualization lateral to the inferior epigastric vessels. The bowel was swept away and the above findings were noted. The LigaSure device was used to clamp seal and transect the antimesenteric portions of the right tube to the cornual insertion of the uterus. The tube was amputated from the uterus and the pedicles were all confirmed to be hemostatic. The same procedure was performed on the contralateral side. The specimens were brought out through a 5 mm port. The pedicles were again examined and found to be hemostatic. The lateral ports were removed under direct visualization and no active bleeding was noted. The pneumoperitoneum was released. The skin incisions were closed with Monocryl suture in a subcuticular fashion and skin glue. The vaginal instruments were removed and the vaginal sweep was completed by me. The entire procedure was performed by me with assistance. All sponge and needle counts were correct and the patient was taken to the recovery room in stable condition. Grafts/Implants Used: none - Complications none - Admit VTE Documentation VTE Present on Admission: No VTE Mechan Device Prophylaxis: SCD's VTE Pharm Prophylaxis ordered?: No Reason prophylaxis not ordered:: Treatment Not Indicated
== END 2019-07-22 12:28 | disposition home or self-care (01) ==
LOC: SDC 07:59 → AC 08:01
PROVIDERS: PCP Internal Medicine; Referring Provider Obstetrics & Gynecology; Visit Provider Obstetrics & Gynecology
PROC: (CPT 58661; principal; 2019-07-22 09:15)
DX: Z30.2 Encounter for sterilization (principal); N83.8 Other noninflammatory disorders of ovary, fallopian tube and broad ligament
CPT/HCPCS: 00840; 58661; 81025; 88302; J7120; J2405

== ENCOUNTER 2022-12-08 12:08 | Emergency (ER) | payer MEDICAID, SELFPAY ==
[2022-12-08 12:09] VITALS: BP 146/87; PULSE 103; RESP 18; TEMP 35.7; O2SAT 97; BMI 41.5
--- NOTE | 2022-12-08 12:22 | EX.ED.DYSGE1 ---
HPI <RITA Manning - Last Filed: 12/08/22 13:04> History of Present Illness Chief Complaint: Rash Narrative Narrative: Patient presenting today with a poison flori rash to her arms bilaterally, neck, and face. The rash started on Friday to her arms and she went to urgent care on Friday where she was given a shot of a steroid and topical steroid cream. Yesterday, it spread to her face and seemed to worsen. She reports that it has spread to her right eyelid and she is having a difficult time opening up her eye. She denies any visual changes, blurry vision, or eye pain. She denies a PMH of any chronic health conditions. She denies any fever or chills. PFSH <RITA Manning - Last Filed: 12/08/22 13:04> PFSH Home Medications acetaminophen 500 mg tablet 500 - 1,000 mg PO Q6H PRN PRN Pain Or Fever 07/20/19 [History Last Taken Unknown] ibuprofen 600 mg tablet 600 mg PO Q6H PRN Pain #60 tabs 07/22/19 [Rx Last Taken Unknown] prednisone 20 mg tablet 40 mg (2 x 20 mg) PO DAILY 7 days #14 tabs 12/08/22 [Rx Last Taken Unknown] Allergy/AdvReac Type Severity Reaction Status Date / Time No Known Allergies Allergy Verified 07/22/19 08:18 Social History Smoking Status: Never smoker ROS <RITA Manning - Last Filed: 12/08/22 13:04> ROS ED Constitutional Constitutional ED: Denies chills or fever(s) Eyes Eyes: Denies blurry vision or change in vision Cardiovascular Cardiovascular: Denies chest pain or palpitations Respiratory/Chest Respiratory/Chest: Denies cough or dyspnea Gastrointestinal Gastrointestinal: Denies abdominal pain, nausea or vomiting Musculoskeletal Musculoskeletal: Denies arthralgias or myalgias Integumentary Reports rash; Denies abscess Neurologic Neurologic: Denies weakness Allergic/Immunologic Allergic/Immunologic ED: Denies lip swelling, mouth swelling or tongue swelling EXAM <RITA Manning - Last Filed: 12/08/22 13:04> Physical Exam Const Vital Signs: 12/08/22 12:09 Temperature 96.3 F L Temperature Source Temporal Pulse Rate 103 H Respiratory Rate 18 Blood Pressure 146/87 H Blood Pressure Mean 106 Pulse Ox 97 Oxygen Delivery Method Room Air Positive well nourished, well developed and no apparent distress General Appearance ED: well developed HEENT Reports normocephalic and head/scalp atraumatic Mouth ED: Yes moist mucous membranes normal Eyes PERRL and EOMs intact bilaterally Eyes Narrative: Moderate periorbital edema on the right side. Neck full ROM and supple Chest Wall inspection of chest normal Resp normal respiratory effort and clear to auscultation bilaterally Cardio regular rate and regular rhythm GI soft to palpation, non-tender, non-distended and no masses Back/Spine normal ROM and normal to inspection Extremity normal to inspection and full ROM Neuro oriented x3, CN's II-XII intact bilaterally, moves all extremities, no focal motor deficits and no sensory deficits noted Sensorium / Orientation: awake and alert Psych mental status grossly normal and thought process normal Skin no rashes or lesions noted and no wounds Skin Narrative: Scattered vesicular lesions consistent with poison flori dermatitis to the arms, neck, and face. No evidence of cellulitis or abscess. <Dr. Les Heath MD - Last Filed: 12/08/22 12:43> Physical Exam Const Vital Signs: 12/08/22 12:09 Temperature 96.3 F L Temperature Source Temporal Pulse Rate 103 H Respiratory Rate 18 Blood Pressure 146/87 H Blood Pressure Mean 106 Pulse Ox 97 Oxygen Delivery Method Room Air MDM <RITA Manning - Last Filed: 12/08/22 13:04> [facility] Narrative Medical decision making narrative: Patient presenting due to poison flori dermatitis she has had since Friday. She went to urgent care on Friday was given a shot of steroid and her symptoms began worsening yesterday and this morning. She now has involvement of her face and arms and moderate right periorbital edema. No evidence of abscess or cellulitis. She will be given prednisone here as well as a prescription for prednisone. She will be discharged home in stable condition and and is comfortable with plan. She is to follow-up with PCP return for any worsening of symptoms. I have personally performed a face to face assessment of the patient and have reviewed the JULIO Note. I performed a substantive portion of the visit including all aspects of the following. My dias findings include: History is 27-year-old female with a contact dermatitis she believes is poison flori. Treated with Kenalog shot from an urgent care on Friday no improvement. Exam is [well-appearing 19-year-old female. Vital signs stable afebrile. HEENT exam she has a rash on the right side of her face around her eye and right side of her neck consistent with a contact dermatitis. There is no secondary cellulitis. Lungs are clear. Heart regular rhythm. Abdomen soft. Also on her arms the rash.] Medical Decision Making [27-year-old with contact dermatitis. Treated with p.o. prednisone for the next week. First dose given here.] Other additions or change s: [None] <Dr. Les Heath MD - Last Filed: 12/08/22 12:43> [facility] Narrative Medical decision making narrative: Patient presenting due to poison flori dermatitis she has had since Friday. She went to urgent care on Friday was given a shot of steroid and her symptoms began worsening yesterday and this morning. She now has involvement of her face and arms and moderate right periorbital edema. She will be given prednisone here as well as a prescription for prednisone. I have personally performed a face to face assessment of the patient and have reviewed the JULIO Note. I performed a substantive portion of the visit including all aspects of the following. My dias findings include: History is 27-year-old female with a contact dermatitis she believes is poison flori. Treated with Kenalog shot from an urgent care on Friday no improvement. Exam is [well-appearing 19-year-old female. Vital signs stable afebrile. HEENT exam she has a rash on the right side of her face around her eye and right side of her neck consistent with a contact dermatitis. There is no secondary cellulitis. Lungs are clear. Heart regular rhythm. Abdomen soft. Also on her arms the rash.] Medical Decision Making [27-year-old with contact dermatitis. Treated with p.o. prednisone for the next week. First dose given here.] Other additions or change s: [None] Discharge Plan Triage Chief Complaint: Rash ED Midlevel Provider: Delmy Magallanes ED Provider: Les Heath Dx/Rx/DC Orders Clinical Impression: Poison flori dermatitis Instructions: ED Poison Flori Rash Prescriptions: New prednisone 20 mg tablet 40 mg PO DAILY 7 Days Qty: 14 0RF No Action acetaminophen 500 MG tablet 500 - 1,000 mg PO Q6H PRN PRN (Reason: Pain Or Fever) ibuprofen 600 MG tablet 600 mg PO Q6H PRN (Reason: Pain) Qty: 60 1RF Primary Care Provider: Arielle Solares Referrals: Arielle Solares MD [Primary Care Provider] - 3-5 Days if not improving Activity Restrictions/Additional Instructions: Begin the prescription prednisone tomorrow and take daily for 7 days. Please return for any worsening of your symptoms and follow-up with your PCP. You can also try [id number] medications for poison flori to help relieve the itching. Disposition Disposition: Home, Self Care Discharge Date/Time: 12/08/22 12:44
[2022-12-08] MEDS: predniSONE 20 MG Tablet 60 MG PO (12:28)
== END 2022-12-08 12:44 | disposition home or self-care (01) ==
PROVIDERS: Emergency Provider Emergency Medicine; PCP Internal Medicine; Visit Provider Emergency Medicine
DX: L23.7 Allergic contact dermatitis due to plants, except food (principal)
CPT/HCPCS: 99283